=== PATIENT | female | born 1990 | race African-American/Black ===

== ENCOUNTER 2019-07-01 19:53 | Observation (INO) | payer MEDICAID ==
[~2019-07-01] VITALS: Ht 160 cm; Wt 87.1 kg
== END 2019-07-01 23:20 | disposition home or self-care (01) ==
LOC: 8 EST LDRP 19:53
PROVIDERS: ADMIT Specialist; ATTEND Specialist
DX: O62.9 Abnormality of forces of labor, unspecified (principal); O48.0 Post-term pregnancy; Z3A.40 40 weeks gestation of pregnancy
CPT/HCPCS: 76815; 76818; 99281; G0378

== ENCOUNTER 2019-07-03 09:05 | Inpatient (IN) | payer MEDICAID ==
[~2019-07-03] VITALS: Ht 160 cm; Wt 87.1 kg
[2019-07-03] MEDS: KETOROLAC 30MG/ML VIAL IV SCH (05:14)
[2019-07-03] MEDS ORDERED: DEXT 5%/LR + PITOCIN 20UNITS/L 1,000 ML IV SCH ×2 (09:26→23:26)
[2019-07-03] MEDS ORDERED: LIDOCAINE HCL 1% 20ML VIAL (Pyxis) INJ INFIL SCH (09:30)
[2019-07-03] MEDS ORDERED: METHYLERGONOVINE MALEATE 0.2 MG/ML IM PRN (09:30)
[2019-07-03] MEDS ORDERED: MISOPROSTOL 100MCG TABLET VG SCH (09:30)
[2019-07-03] MEDS ORDERED: CARBOPROST TROMETHAMINE 250 MCG/ML AMPUL IM PRN (09:30)
[2019-07-03] MEDS: LACTATED RINGERS 1,000 ML IV SCH ×3 (10:29→21:36)
[2019-07-03 11:02] LABS: BASOPHILS % 0.1 % (0.0-2.0); CLARITY URINE CLOUDY (CLEAR); COLOR URINE YELLOW (YELLOW); EOSINOPHILS % 0.2 % (0.0-5.0); HEMATOCRIT. 39.3 % (36.0-48.0); HEMOGLOBIN. 13.6 g/dL (12.0-16.0); KETONES URINE NEGATIVE (NEGATIVE); LEUKOCYTE ESTERASE URINE NEGATIVE (NEGATIVE); LYMPHOCYTES % 17.8 % (20.0-50.0); MEAN CORPUSCULAR HEMOGLOBIN 31.1 pg (28.0-32.0); MEAN CORPUSCULAR VOLUME 90.2 fL (81.0-99.0); MEAN PLATELET VOLUME 9.5 fl (7.4-10.4); MONOCYTES % 4.8 % (2.0-8.0); NEUTROPHILS % 77.1 % (40.0-76.0); NITRITE URINE NEGATIVE (NEGATIVE); OCCULT BLOOD URINE NEGATIVE (NEGATIVE); PLATELET 185 x1000/uL (130-400); PROTEIN URINE NEGATIVE (NEGATIVE); RED BLOOD CELL COUNT 4.36 mill/uL (4.2-5.4); RED CELL DISTRIBUTION WIDTH 13.9 % (11.6-14.6); SPECIFIC GRAVITY URINE 1.016 (1.005-1.030); UROBILINOGEN URINE 0.2 E.U./dL (0.2-1.0)
[2019-07-03 11:09] LABS: INR 0.9; PARTIAL THROMBOPLASTIN TIME 28.3 sec (23.4-31.0); PROTHROMBIN TIME 9.4 sec (9.6-11.0)
[2019-07-03] MEDS: MISOPROSTOL 100MCG TABLET VG SCH ×3 (11:15→19:15)
[2019-07-03 11:33] LABS: *BARBITURATES SCREEN URINE NEGATIVE (NEGATIVE)
[2019-07-03 11:35] LABS: *AMPHETAMINES SCREEN URINE NEGATIVE (NEGATIVE); *BENZODIAZEPINES SCREEN URINE NEGATIVE (NEGATIVE); *COCAINE SCREEN URINE NEGATIVE (NEGATIVE); METHADONE URINE SCREEN NEGATIVE (NEGATIVE); OPIATES URINE SCREEN NEGATIVE (NEGATIVE)
[2019-07-03 11:36] LABS: PHENCYCLIDINE URINE SCREEN NEGATIVE (NEGATIVE)
[2019-07-03 11:44] LABS: CANNABINOID URINE SCREEN PRESUMTIVE POSITIVE (NEGATIVE)
[2019-07-03 12:59] LABS: HEPATITIS B SURFACE ANTIGEN NEGATIVE
[2019-07-03] MEDS ORDERED: ROPIVACAINE HCL/PF EPIDURAL 200 ML EPI SCH (13:45)
[2019-07-03] MEDS: BUTORPHANOL TARTRATE 2 MG/ML VIAL IV PRN ×2 (16:54→19:15)
[2019-07-03] MEDS ORDERED: MORPHINE SULFATE/PF 1MG/ML 10ML AMP ONE (21:49)
[2019-07-03] MEDS ORDERED: FENTANYL CITRATE/PF 50MCG/ML 2ML VIAL ONE (21:49)
[2019-07-03] MEDS ORDERED: PHENYLEPHRINE HCL 10 MG/ML 1ML (IV VIAL) IV ONE (21:50)
[2019-07-03] MEDS ORDERED: EPHEDRINE SULFATE 50MG/ML VIAL ONE (21:50)
[2019-07-03] MEDS ORDERED: GLYCOPYRROLATE 0.2 MG/ML 2ML VIAL ONE (21:50)
[2019-07-03] MEDS ORDERED: ONDANSETRON HCL 4MG/2ML INJ ONE (21:50)
[2019-07-03] MEDS ORDERED: OXYTOCIN 10 UNITS/ML 1ML ONE (21:50)
[2019-07-03] MEDS ORDERED: CEFAZOLIN SODIUM 1000MG/VIAL ONE (21:50)
[2019-07-03] MEDS ORDERED: CITRIC ACID/SODIUM CITRATE SOLN 30ML UDC PO NR (22:00)
[2019-07-03] MEDS ORDERED: PENICILLIN G POTASSIUM 5 MMU in DEXT 5% WATER 100 ML IV SCH (22:00)
[2019-07-03] MEDS ORDERED: DIPHENHYDRAMINE 50MG/ML VIAL ONE (22:38)
[2019-07-03] MEDS ORDERED: KETOROLAC 60MG/2ML VIAL IM ONE (22:39)
[2019-07-03] MEDS ORDERED: DIPHENHYDRAMINE 50MG/ML VIAL IV PRN (23:30)
[2019-07-03] MEDS ORDERED: NALOXONE HCL 0.4 MG/ML 1ML VIAL IV PRN (23:30)
[2019-07-03] MEDS ORDERED: BUTORPHANOL TARTRATE 2 MG/ML VIAL IV PRN (23:30)
[2019-07-03] MEDS ORDERED: ONDANSETRON HCL 4MG/2ML INJ IV PRN (23:30)
[2019-07-03] MEDS ORDERED: BISACODYL 10MG SUPP PR PRN (23:30)
[2019-07-03] MEDS ORDERED: LANOLIN OINT 7GM TUBE TOP PRN (23:30)
[2019-07-03] MEDS ORDERED: IBUPROFEN 400MG TABLET PO PRN (23:30)
[2019-07-03] MEDS ORDERED: RHO(D) IMMUNE GLOBULIN 300 MCG/SYR IM PRN (23:30)
[2019-07-04] MEDS: KETOROLAC 30MG/ML VIAL IV SCH ×2 (01:14→17:29)
[2019-07-04 02:00] VITALS: BP 133/72
[2019-07-04] MEDS ORDERED: PENICILLIN G POTASSIUM 2.5 MMU in DEXTROSE 5% WATER 50 ML IV SCH (02:00)
[2019-07-04 03:00] VITALS: BP 135/78
[2019-07-04 06:06] LABS: BASOPHILS % 0.1 % (0.0-2.0); HEMATOCRIT. 37.8 % (36.0-48.0); HEMOGLOBIN. 12.7 g/dL (12.0-16.0); MEAN CORPUSCULAR HEMOGLOBIN 30.4 pg (28.0-32.0); MEAN CORPUSCULAR VOLUME 90.5 fL (81.0-99.0); MONOCYTES % 5.4 % (2.0-8.0); NEUTROPHILS % 79.5 % (40.0-76.0); PLATELET 183 x1000/uL (130-400); RED BLOOD CELL COUNT 4.17 mill/uL (4.2-5.4); RED CELL DISTRIBUTION WIDTH 13.8 % (11.6-14.6)
[2019-07-04 08:00] VITALS: BP 113/65
[2019-07-04] MEDS: PRENATAL VIT/FE FUMARATE/FA TABLET PO SCH (13:29)
[2019-07-04] MEDS: ACETAMINOPHEN WITH CODEINE 300/30MG TABLET PO PRN (13:30)
[2019-07-04 16:00] VITALS: BP 130/70
[2019-07-04 19:30] VITALS: BP 116/62
[2019-07-04] MEDS: DOCUSATE SODIUM 100MG CAPSULE PO SCH (21:20)
[2019-07-05] VITALS: BP 115/68
[2019-07-05] MEDS: ACETAMINOPHEN WITH CODEINE 300/30MG TABLET PO PRN ×4 (02:23→16:04)
[2019-07-05 04:00] VITALS: BP 105/55
[2019-07-05 08:32] VITALS: BP 92/65
[2019-07-05] MEDS: PRENATAL VIT/FE FUMARATE/FA TABLET PO SCH (10:56)
[2019-07-05 16:13] VITALS: BP 125/62
[2019-07-05] MEDS: HYDROCODONE/ACETAMINOPHEN 5/325MG TABLET PO PRN (18:52)
[2019-07-05 19:30] VITALS: BP 127/59
[2019-07-05] MEDS: DOCUSATE SODIUM 100MG CAPSULE PO SCH (20:54)
[2019-07-06] MEDS: HYDROCODONE/ACETAMINOPHEN 5/325MG TABLET PO PRN ×3 (00:22→08:14)
[2019-07-06 03:00] VITALS: BP 132/66
[2019-07-06] MEDS ORDERED: IBUP-2030 MT (04:44)
[2019-07-06 07:38] VITALS: BP 131/71
[2019-07-06] MEDS: PRENATAL VIT/FE FUMARATE/FA TABLET PO SCH (08:14)
[2019-07-07 06:08] LABS: CANNABINOID CONFIRMATION URINE Positive (.)
== END 2019-07-06 10:40 | disposition home or self-care (01) | DRG 540 ==
LOC: 8 EST LDRP 09:05 → OBSVTOIN 09:05 → 8EST 07-04 00:52
PROVIDERS: ADMIT Specialist; ATTEND Specialist
PROC: 10D00Z1 Extraction of Products of Conception, Low, Open Approach (ICD-10-PCS; principal; 2019-07-03)
DX: O48.0 Post-term pregnancy (principal); O69.81X0 Labor and delivery complicated by cord around neck, without compression, not applicable or unspecified; O76 Abnormality in fetal heart rate and rhythm complicating labor and delivery; O99.824 Streptococcus B carrier state complicating childbirth; Z37.0 Single live birth; Z3A.41 41 weeks gestation of pregnancy
CPT/HCPCS: 36415; 80305; 80349; 81003; 85025; 86592; 86703; 86762; 86850; 86900; 87340; 88307; G0378; J0595; J0690; J1200; J1885; J2274; J2370; J2405; J2540; J2590; J3010; J3490; J7060